=== PATIENT | male | born 1965 | race Caucasian/White ===

== ENCOUNTER 2019-03-01 05:40 | Day surgery (SDC) | payer OTHER ==
[~2019-03-01 05:40] MED LIST: ASA81 MG PO; JARDIANCE10 MG PO; LIPITOR40 MG PO; LOSARTAN POTAS100 MG PO; METFORMIN HCL1000 M1 PO; METOPROLOL SUC200 MG PO; NORVASC5 MG PO
== END 2019-03-01 14:03 | disposition home or self-care (01) ==
LOC: CIR.AMB 05:40
DX: K40.30 Unilateral inguinal hernia, with obstruction, without gangrene, not specified as recurrent (principal)